=== PATIENT | male | born 1940 | race Caucasian/White ===

== ENCOUNTER → 2016-12-11 | Outpatient (CLI) | payer OTHER ==
[~2016-12-11] VITALS: Ht 175.3 cm; Wt 81.2 kg
[~2016-12-11] MED LIST: AMMONIUM LACTA225 GM TP; ASPIR 8181 MG PO; ASPIRIN EC81 M1 PO; CRESTOR10 MG; DUREZOL5 ML OP; FLOMAX0.4 MG PO; GABAPENTIN 100100 MG PO; GLUCOPHAGE1000 MG; HYDROCODON-ACE1 EAC8 PO; HYDROCODONE-APA1 TA1 PO; METFORMIN HCL500 MG PO; MOVANTIK25 MG PO; NEURONTIN 300300 M1 PO; NORCO 10-325 T1 EACH PO; NORCO 5-325 TA1 EACH PO; NORCO 7.5-3251 EACH PO; NYSTATIN 1100000 U/M PO; PIOGLITAZONE15 MG PO; PROCTOSOL-HC28.35 GM RC; PROTONIX40 M1 PO; TAMSULOSIN HCL0.4 MG PO; TEGRETOL XR100 MG PO; TRAMADOL 50 MG50 MG PO; TRILEPTAL150 MG PO; UNICOMPLEX M TA1 TA1 PO; URECHOLINE 10 M10 M1 PO; VIGAMOX3 M1 OP; ZOFRAN ODT4 MG PO
--- NOTE | ~2016-12-11 | HPC ---
[facility] [address] [place] [address] PAIN MANAGEMENT CONSULTATION Name: FANNIE GODOY [id number] Admission: 12/11/16 Attend Phys: Sergey Lopez DO Discharge: Date of : 39 Report #: [id number] THIS REPORT FOR: //name// CC: Chelsea Lopez HISTORY OF PRESENT ILLNESS: The patient is a very pleasant 76-year-old gentleman being treated for neuropathic pain. He is status post traumatic compression fracture L1 with T12-L3 fusion. Last seen in pain clinic on 08/03/2016, we did a left L4-L5 transforaminal epidural injection for ongoing radicular pain. He had perirectal pain with burning neuropathic component, this has been treated with gabapentin 300 mg t.i.d. with some efficacy. He returns to pain clinic today noting that the injection afforded 50-60% relief for 3-4 months, pain is beginning to recur, left lateral leg to great toe. Intermittent tailbone or perirectal dysesthesia. Rates his pain of 4 on a 0-10 visual analog scale; associated with numbness, aching, intermittent burning; exacerbated being up and after activity. PHYSICAL EXAMINATION: Shows 76-year-old gentleman, BMI is 26.4 kilograms per meter squared. Vital signs are stable as noted in the EMR. Alert and oriented to person, place and time, judged to be a reasonable historian. Rises from chair using armrest, modestly antalgic gait, positive straight leg raise on the left with L4 distribution pain. Diffuse tenderness across the low back. No discrete trigger points noted. We reviewed the fact that opiate medications are being used to provide analgesia adequate to support activities of daily living, not attempting to achieve a specific pain score on the 0-10 Visual Analog Scale. The current opiate medications are providing sufficient analgesia to allow the patient to participate in activities of daily living. The patient is not exhibiting any aberrant behavior suggestive of drug diversion. The patient is not having any adverse reactions to medications. The patient is not suffering from daytime somnolence or mental acuity changes. The patient is managing opiate-induced constipation with appropriate yggv-sbe-colrszu agents and dietary considerations. The patient was counseled on concern for caution with operating a motor vehicle while using opiate medications. A physical exam was performed and the patient's functional status was evaluated. All patients with back pain were advised against the bed rest greater than 4 days and were advised to return to normal activities. Pain score assessment was noted and the treatment plan was reviewed with the patient. All current medications, both prescribed and OTC were reviewed and reconciled on the electronic medical record. Tobacco screening was accomplished and smoking cessation was advised when indicated. BMI was noted and diet/exercise modification was recommended for all patients following outside normal parameters. [address] [address] PAIN MANAGEMENT CONSULTATION Name: WALTFANNIE J [facility] #: [facility] [id number] Admission: 12/11/16 Attend Phys: Sergey Lopez DO Discharge: Date of : 39 Report #: [id number] I reviewed with the patient today their responsibilities to safeguard prescription medications, reviewed their responsibility to utilize medications only as prescribed by the physician. They are to seek and receive pain medications only from 1 physician group ( [facility]). They are to use 1 pharmacy and keep the clinic informed if they change pharmacies. Their responsibilities include making followup visits in a timely fashion and to avoid abrupt discontinuation of medication usage. Their responsibilities further include bringing their medications (bottles from the pharmacy with residual pills) to the visit for possible confirmation of pill counts and the patient understands it is their responsibility to submit to random drug screens to ensure both that the medications prescribed are present, and that no other controlled substances are present. All prescriptions provided today were generated electronically. The patient continues to take hydrocodone 7.5/325 one tablet 2-4 times a day, 240 tablets typically lasts 90 days plus. Uses gabapentin 300 mg 1 in the morning, 1 at noon, and 2 at night; Trileptal 1 in the morning, 2 at night. No problems with daytime somnolence, mental acuity changes, constipation. ASSESSMENT: Symptomatic lumbar radiculopathy status post decompressive laminectomy and fusion T10-L3 with an L4 left radicular pain pattern, neuropathic pain stable on baseline medications. RECOMMENDATION: Renew hydrocodone 7.5/325 100 tablets with a second prescription to be released in 6 weeks, typically these 2 prescriptions should last about 3 months. We will renew gabapentin 300 mg 1 in the morning, 1 at noon and 2 at night, 360 tablets and oxcarbazepine 1 in the morning, 2 at night, 270 tablets. months prescriptions will need to be renewed quarterly. We will seek authorization for repeat left L4-L5 transforaminal epidural injection at next visit. By: [id number] Sergey Lopez DO /nt
[2016-12-11 10:39] VITALS: BP 138/84
== END | disposition home or self-care (01) ==
LOC: PAIN 06:52
DX: M54.16 Radiculopathy, lumbar region (principal); I10 Essential (primary) hypertension; F11.20 Opioid dependence, uncomplicated; Z98.890 Other specified postprocedural states; Z79.82 Long term (current) use of aspirin; Z79.899 Other long term (current) drug therapy

== ENCOUNTER → 2016-12-18 | Outpatient (CLI) | payer OTHER ==
[~2016-12-18] VITALS: Ht 175.3 cm; Wt 80.6 kg
--- NOTE | ~2016-12-18 | HPC ---
[address] [address] PAIN MANAGEMENT CONSULTATION Name: FANNIE GODOY Room #: REG [facility] Zacarias#: [id number] Admission: 12/18/16 Attend Phys: Sergey Lopez DO Discharge: Date of : 39 Report #: [id number] THIS REPORT FOR: //name// CC: Chelsea Lopez DATE OF SERVICE: 12/18/2016 The patient is a very pleasant 76-year-old gentleman well known to the pain clinic, typically treated for lumbar radiculopathy, status post traumatic compression fracture L1 with a T12 to L3 fusion. He was seen in the pain clinic 12/11/2016 with acute exacerbation of left L4 radicular pain. I had prior proceeded with a left L4-L5 transforaminal epidural injection 08/03/2016, this gave him greater than 60% relief for 3-4 months. We sought authorization for repeat injection at last visit. This was accomplished. He presents to pain clinic today for this procedure. PROCEDURE: Transforaminal lumbar epidural injection under fluoroscopy. PROCEDURE NOTE: After both written and informed consent was obtained including risk of spinal cord damage, infection, increased pain and paralysis, the patient agreed to proceed. The patient was taken to the fluoroscopy suite, placed in a prone position with appropriate abdominal bolstering. After sterile prep with ChloraPrep and sterile drape, a skin wheal with 1% Xylocaine was raised. A 22 gauge 4-1/2 inch epidural Tuohy needle was inserted. From an oblique approach into the posterior-superior aspect of the left L4-L5 neural foramen with continuous pressure on the glass syringe plunger for loss of resistance. Glass syringe was filled with 2 cc of 0.1 Xylocaine. The glass loss of resistance syringe was removed. A low volume extension tubing was connected, negative aspiration was accomplished for cerebrospinal fluid or blood. 1 mL of Omnipaque was injected which showed spread both within the epidural space and laterally along the nerve root. This was followed with 80 mg of triamcinolone plus 1 mL of 1.5% preservative-free Xylocaine. Needle was partially withdrawn, 0.5 mL of Xylocaine was injected to clear the needle and the needle was removed. The area was cleansed, band-aid was applied. The patient was allowed to ambulate to the recovery room, discharged in good and stable condition. ASSESSMENT: Symptomatic lumbar radiculopathy status post decompressive laminectomy. <ELECTRONICALLY SIGNED> By: Sergey Lopez DO 12/22/16 1606 1537 00 Sergey Lopez DO /nt
[2016-12-18 10:57] VITALS: BP 134/81
== END | disposition home or self-care (01) ==
LOC: PAIN 06:53
DX: M54.16 Radiculopathy, lumbar region (principal); Z87.81 Personal history of (healed) traumatic fracture

== ENCOUNTER → 2017-03-22 | Outpatient (CLI) | payer OTHER ==
[~2017-03-22] VITALS: Ht 175.3 cm; Wt 80.3 kg
--- NOTE | ~2017-03-22 | HPC ---
[facility] [address] [place] [address] PAIN MANAGEMENT CONSULTATION Name: WALTFANNIE Randee Room #: REG [facility] Zacarias#: [id number] Admission: 03/22/17 Attend Phys: Sergey Lopez DO Discharge: Date of : 39 Report #: [id number] THIS REPORT FOR: //name// CC: Chelsea Lopez The patient is a very pleasant 77-year-old gentleman, well known to pain clinic, typically treated for axial back pain, lumbar radiculopathy, status post L1 vertebral compression fracture (traumatic) with subsequent T12-L3 fusion. Requires high risk complex medication management. Last seen in the pain clinic on 12/18/2016, did a left L4-L5 transforaminal epidural injection with over 50% improvement of pain for 8-12 weeks. Prior, he had a left L4-L5 transforaminal epidural injection back in July. He returns to pain clinic today, we had a prolonged visit from 10:20-10:45, greater than 50% of the 25+ minute visit was spent counseling the patient. He notes medications are helpful, rates his pain anywhere from a 4-8 on a VAS. Again, good transient relief greater than 2 months following the transforaminal epidural injection. Continues to take hydrocodone 7.5/325 up to 4 a day, Trileptal 150 mg 1 in the morning, 2 at night, gabapentin 300 mg 1 in the morning and 2 at night. The patient fell 3 weeks ago, he tripped over a garden hose, was seen as a trauma patient in the ER, I believe at [facility]. He did have some fractured ribs. This was 3 weeks ago. Today, he notes pain somewhat in the left chest wall, but chronic pain in the left L4 distribution, down that leg. Pain is exacerbated with standing, walking and bending. PHYSICAL EXAMINATION: GENERAL: Shows 77-year-old gentleman. VITAL SIGNS: BMI is 26.1 kilograms per meter squared. Blood pressure is nominally elevated at 144/94, pulse 75, respirations 16. CHEST: Again, deep excursion respiration exacerbates left chest wall pain. MUSCULOSKELETAL: Rises from chair using armrest, modestly antalgic gait, positive straight leg raise on the left. We reviewed the fact that opiate medications are being used to provide analgesia adequate to support activities of daily living, not attempting to achieve a specific pain score on the 0-10 Visual Analog Scale. The current opiate medications are providing sufficient analgesia to allow the patient to participate in activities of daily living. The patient is not exhibiting any aberrant behavior suggestive of drug diversion. The patient is not having any adverse reactions to medications. The patient is not suffering from daytime somnolence or mental acuity changes. The patient is managing opiate-induced [address] [address] PAIN MANAGEMENT CONSULTATION Name: FANNIE GODOY Room #: REG [facility] Adames#: [id number] Admission: 03/22/17 Attend Phys: Sergey Lopez DO Discharge: Date of : 39 Report #: [id number] constipation with appropriate isoe-uuk-fmmtoip agents and dietary considerations. The patient was counseled on concern for caution with operating a motor vehicle while using opiate medications. A physical exam was performed and the patient's functional status was evaluated. All patients with back pain were advised against the bed rest greater than 4 days and were advised to return to normal activities. Pain score assessment was noted and the treatment plan was reviewed with the patient. All current medications, both prescribed and OTC were reviewed and reconciled on the electronic medical record. Tobacco screening was accomplished and smoking cessation was advised when indicated. BMI was noted and diet/exercise modification was recommended for all patients following outside normal parameters. I reviewed with the patient today their responsibilities to safeguard prescription medications, reviewed their responsibility to utilize medications only as prescribed by the physician. They are to seek and receive pain medications only from 1 physician group ( [facility]). They are to use 1 pharmacy and keep the clinic informed if they change pharmacies. Their responsibilities include making followup visits in a timely fashion and to avoid abrupt discontinuation of medication usage. Their responsibilities further include bringing their medications (bottles from the pharmacy with residual pills) to the visit for possible confirmation of pill counts and the patient understands it is their responsibility to submit to random drug screens to ensure both that the medications prescribed are present, and that no other controlled substances are present. All prescriptions provided today were generated electronically. ASSESSMENT: Left lumbar radiculopathy status post T12-L3 fusion after L1 compression fracture. Recent left chest wall pain secondary to rib fractures (trip and fall), lumbar radiculopathy, chronic pain syndrome requiring high-risk complex medication management. RECOMMENDATION: We will renew hydrocodone 10/325 up to 4 a day, taken the liberty of writing for 3 months of current medication. Continue gabapentin and oxcarbazepine unchanged. We will seek authorization for repeat left L4-L5 transforaminal epidural injection. The patient and his were packing their home, downsizing and moving over the next several weeks. We will likely proceed with epidural injection (left L4-L5 transforaminal) in the next 2-3 weeks, we will seek authorization for same. Discharged in good stable condition after prolonged visit, greater than 25 minutes was spent with the patient today, 50% of time spent counseling the patient regarding therapeutic options. <ELECTRONICALLY SIGNED> By: Sergey Lopez DO 03/23/17 1036 1221 0848 Sergey Lopez DO /nt
[2017-03-22 10:18] VITALS: BP 144/94
== END | disposition home or self-care (01) ==
LOC: PAIN 06:29
DX: M54.16 Radiculopathy, lumbar region (principal); S22.089G Unspecified fracture of T11-T12 vertebra, subsequent encounter for fracture with delayed healing; X58.XXXD Exposure to other specified factors, subsequent encounter; G89.4 Chronic pain syndrome

== ENCOUNTER → 2017-03-23 | Outpatient (CLI) | payer OTHER | LOC: RAD 08:45 | DX: S22.42XA Multiple fractures of ribs, left side, initial encounter for closed fracture (principal); X58.XXXA Exposure to other specified factors, initial encounter; Y93.89 Activity, other specified; Y92.89 Other specified places as the place of occurrence of the external cause; Y99.8 Other external cause status ==

== ENCOUNTER → 2017-04-09 | Outpatient (CLI) | payer OTHER ==
[~2017-04-09] VITALS: Ht 175.3 cm; Wt 84.5 kg
--- NOTE | ~2017-04-09 | HPC ---
[facility] [place] [address] PAIN MANAGEMENT CONSULTATION Name: WALTFANNIE Room #: REG [facility] Zacarias#: [id number] Admission: 04/09/17 Attend Phys: Sergey Lopez DO Discharge: Date of : 39 Report #: [id number] THIS REPORT FOR: //name// CC: Chelsea Lopez DATE OF SERVICE: 04/09/2017 PROCEDURE: Left L4-L5 transforaminal epidural injection under fluoroscopy. INDICATION: Symptomatic lumbar radiculopathy status post extensive decompressive laminectomy and fusion (T12-L3) for a traumatic burst fracture of L1. Axial back pain, lumbar radiculopathy. He did very well with the prior left L4-L5 transforaminal epidural injection on 12/18/2016. He continued on baseline medication including hydrocodone 10/325 four a day, gabapentin and Trileptal. We sought at last visit 03/22/2017 authorization for today's injection. ASSESSMENT: Symptomatic lumbar radiculopathy, status post prior decompressive laminectomy and fusion. PROCEDURE: Left L4-L5 transforaminal epidural injection under fluoroscopy. PROCEDURE NOTE: After both written and informed consent was obtained including risk of spinal cord damage, infection, increased pain and paralysis, the patient agreed to proceed. The patient was taken to the fluoroscopy suite, placed in a prone position with appropriate abdominal bolstering. After sterile prep with ChloraPrep and sterile drape, a skin wheal with 1% Xylocaine was raised. A 22 gauge 4-1/2 inch epidural Tuohy needle was inserted. From an oblique approach into the posterior-superior aspect of the left L4-L5 neural foramen with continuous pressure on the glass syringe plunger for loss of resistance. Glass syringe was filled with 2 cc of 0.1 Xylocaine. The glass loss of resistance syringe was removed. A low volume extension tubing was connected, negative aspiration was accomplished for cerebrospinal fluid or blood. 1 mL of Omnipaque was injected which showed spread both within the epidural space and laterally along the nerve root. This was followed with 80 mg of triamcinolone plus 1 mL of 1.5% preservative-free Xylocaine. Needle was partially withdrawn, 0.5 mL of Xylocaine was injected to clear the needle and the needle was removed. The area was cleansed, band-aid was applied. The patient was allowed to ambulate to the recovery room, discharged in good and stable condition. <ELECTRONICALLY SIGNED> By: Sergey Lopez DO 04/11/17 0802 1548 2033 Sergey Lopez DO /nt
[2017-04-09 12:37] VITALS: BP 140/73
== END | disposition home or self-care (01) ==
LOC: PAIN 07:23
DX: M54.16 Radiculopathy, lumbar region (principal); Z98.890 Other specified postprocedural states; Z87.81 Personal history of (healed) traumatic fracture; Z87.442 Personal history of urinary calculi; Z79.82 Long term (current) use of aspirin; Z79.899 Other long term (current) drug therapy

== ENCOUNTER → 2017-07-16 | Outpatient (CLI) | payer OTHER ==
[~2017-07-16] VITALS: Ht 175.3 cm; Wt 80.2 kg
[~2017-07-16] MED LIST changes: +CYMBALTA30 MG PO
--- NOTE | ~2017-07-16 | HPC ---
[facility] [place] [address] PAIN MANAGEMENT CONSULTATION Name: FANNIE GODOY Room #: REG [facility] Zacarias#: [id number] Admission: 07/16/17 Attend Phys: Sergey Lopez DO Discharge: Date of : 39 Report #: [id number] THIS REPORT FOR: //name// CC: Chelsea Lopez HISTORY OF PRESENT ILLNESS: The patient is a very pleasant 77-year-old gentleman typically treated for chronic axial back pain. He is status post L1 traumatic vertebral compression fracture with subsequent T12-L3 fusion. He has been treated for chronic back pain, component of lumbar radiculopathy. We did an epidural injection left L4-L5 transforaminal on 04/09/2017. We have continued the patient on hydrocodone 10/325 four a day, gabapentin 300 mg 4 tablets a day and oxcarbazepine 150 mg t.i.d. The patient returns to pain clinic today noting pain continues to be about 5 on a VAS. We had a prolonged visit today, from approximately 9:50-10:20, greater than 50% of this 25+ minute visit was spent counseling the patient. The patient notes while medications provide sufficient analgesia to participate in activities of daily living, he notes pain does continue to be problematic. He has paresthesia in the lower extremities with a component of axial back pain. We reviewed the fact that opiate medications are being used to provide analgesia adequate to support activities of daily living, not attempting to achieve a specific pain score on the 0-10 Visual Analog Scale. The current opiate medications are providing sufficient analgesia to allow the patient to participate in activities of daily living. The patient is not exhibiting any aberrant behavior suggestive of drug diversion. The patient is not having any adverse reactions to medications. The patient is not suffering from daytime somnolence or mental acuity changes. The patient is managing opiate-induced constipation with appropriate seuk-jdj-zcorsug agents and dietary considerations. The patient was counseled on concern for caution with operating a motor vehicle while using opiate medications. A physical exam was performed and the patient's functional status was evaluated. All patients with back pain were advised against the bed rest greater than 4 days and were advised to return to normal activities. Pain score assessment was noted and the treatment plan was reviewed with the patient. All current medications, both prescribed and OTC were reviewed and reconciled on the electronic medical record. Tobacco screening was accomplished and smoking cessation was advised when indicated. BMI was noted and diet/exercise modification was recommended for all patients following outside normal parameters. I reviewed with the patient today [place] [address] PAIN MANAGEMENT CONSULTATION Name: WALTFANNIE MCCRACKEN Room #: REG [place] Adames#: [id number] Admission: 07/16/17 Attend Phys: Sergey Lopez DO Discharge: Date of : 39 Report #: [id number] prescription medications, reviewed their responsibility to utilize medications only as prescribed by the physician. They are to seek and receive pain medications only from 1 physician group ( [facility]). They are to use 1 pharmacy and keep the clinic informed if they change pharmacies. Their responsibilities include making followup visits in a timely fashion and to avoid abrupt discontinuation of medication usage. Their responsibilities further include bringing their medications (bottles from the pharmacy with residual pills) to the visit for possible confirmation of pill counts and the patient understands it is their responsibility to submit to random drug screens to ensure both that the medications prescribed are present, and that no other controlled substances are present. All prescriptions provided today were generated electronically. PHYSICAL EXAMINATION: Shows 77-year-old gentleman, BMI is 26.1 kilograms per meter squared. Blood pressure is 149/83, pulse 76, respirations 16. He does not have a history of osteoarthritis. Again, BMI is 26.1 kilograms per meter squared. He has not fallen in the past 3 months. He had fallen prior to our last visit and had broken ribs that has resolved. He rises from chair using armrest. Gait is tandem. Has some diffuse low back tenderness. Lumbar flexion is modestly limited. Lower extremity strength is preserved. Paresthesia in bilateral lower extremities, left greater than right. ASSESSMENT: Chronic axial back pain, lumbar radiculopathy by history, status post traumatic L1 vertebral compression fracture with subsequent T12-L3 fusion. RECOMMENDATIONS: I had a long discussion with the patient today. We did discuss spinal cord stimulator as possible therapeutic option. I talked about trying to wean off of opiate analgesics as able. I talked about technical concerns for spinal cord stimulator trial, typical entry point is at T12-L1, this is right at the side of his fusion, we would have to enter at T11-T12. We would want to get our contacts over T9, T10 or T11. I do think this is possible, but I told him if we trialled, I would have a "low threshold for aborting" if I was concerned about difficulty with spinal cord stimulator lead trial placement. The patient's general service officer physician, Dr. Hassan, has taken over writing for his gabapentin and carbamazepine. This is appropriate. I would suggest that they continue to watch serum chemistries, Oxcarbazepine can be associated with hyponatremia and leukopenia as well as pancytopenia and thrombocytopenia. Again, the patient has been stable on his medication for quite some time. I doubt that this will become an issue, but again it certainly warrants monitoring. Today, we have elected to continue hydrocodone 10/325, limit 100 tablets for 30 days, he typically takes 1 tablet 3 or 4 times a day. [address] [address] PAIN MANAGEMENT CONSULTATION Name: WALTFANNIE MCCRACKEN [facility] [id number] Admission: 07/16/17 Attend Phys: Sergey Lopez DO Discharge: Date of : 39 Report #: [id number] We did discuss other therapeutic modalities as well. Ultimately, we decided to trial Cymbalta 30 mg low dose. We talked about risks, benefits of this agent as well. Suggest he try at least 30 days of Cymbalta. If this does not afford adequate relief, simply discontinue. If it does get some incremental relief, I have taken the liberty of writing with multiple renewals on this prescription. I also gave the patient both print and video literature regarding high frequency spinal cord stimulator (Nevro) type device. We will continue conversation about spinal cord stimulator and the patient's chronic pain at next visit. Discharged in good and stable condition after prolonged visit, 30 minutes spent counseling the patient. A buccal drug swab was accomplished today. No aberrant behavior suggestive for drug diversion, simply complying with our opiate consent to treat contract. <ELECTRONICALLY SIGNED> By: Sergey Lopez DO 07/18/17 0807 1109 1145 Seregy Lopez DO /bernice
[2017-07-16 09:55] VITALS: BP 149/83
== END ==
LOC: PAIN 07:04
DX: M54.5 Low back pain (principal); M54.16 Radiculopathy, lumbar region; Z87.81 Personal history of (healed) traumatic fracture

== ENCOUNTER → 2017-09-03 | Outpatient (CLI) | payer OTHER ==
[~2017-09-03] VITALS: Ht 175.3 cm; Wt 81.1 kg
--- NOTE | ~2017-09-03 | HPC ---
[facility] [place] [address] PAIN MANAGEMENT CONSULTATION Name: FANNIE GODOY Room #: REG [facility] Naldo.#: [id number] Admission: 09/03/17 Attend Phys: Sergey Lopez DO Discharge: Date of : 39 Report #: [id number] THIS REPORT FOR: //name// CC: Chelsea Lopez DATE OF SERVICE: 09/03/2017 The patient is a very pleasant 77-year-old gentleman long known to the pain clinic, typically treated for axial back pain status post L1 traumatic vertebral compression fracture, status post T12-L3 fusion. He has been having ongoing pain in the left L4 radicular pain pattern. Started the patient on oxcarbazepine 150 mg. He is taking this 1 in the morning, 2 at night, gabapentin 300 mg 1 in the morning, 1 in the afternoon and 2 at night. He has 90-day prescriptions with multiple refills of both of these. He takes hydrocodone p.r.n. 7.5 mg tablets 1 tablet anywhere from 2-4 times a day. Does not require renewal of this prescription. We trialed Cymbalta 30 mg, he took it for 1 week and had some cognitive issues feeling dysphoric. He thinks it may have made his pain worse (?). Random drug screen 07/16/2017, in the last visit was positive for prescribed medications as expected. The patient returns to pain clinic today. We talked about therapeutic issues going forward. We briefly touched on spinal cord stimulator as a therapeutic option on last visit. The patient notes prior left L4-L5 transforaminal epidural injection that helped with the left L4 radicular pain pattern. He thinks oxcarbazepine and gabapentin are helping the neuropathic pain component. PHYSICAL EXAMINATION: Shows 77-year-old gentleman, BMI is 26.4 kilograms per meter squared. Vital signs are stable as noted in the EMR. Does not use tobacco products. Rises from chair using armrest. Gait is tandem. He fell 3 weeks ago, he had some broken ribs. Subsequent to this, he is following up with Dr. Allan. He generally feels his balance is good. He merely tripped. He does think that the Cymbalta again made him feel a little bit dizzy, but this is unrelated to the trip 3 weeks ago. Physical exam further shows a modestly antalgic gait, positive straight leg raise on the left, pain in the L4 radicular pattern, diminished patellar reflex on this side. Lower extremity strength is diminished, but symmetric about 3-4/5 to all muscle groups tested. ASSESSMENT: Symptomatic neuropathic pain, axial back pain status post L1 vertebral compression fracture requiring complex medication management. RECOMMENDATIONS: Continue oxcarbazepine, gabapentin unchanged. We will hold [address] [address] PAIN MANAGEMENT CONSULTATION Name: FANNIE GODOY Room #: REG [facility] Zacarias#: [id number] Admission: 09/03/17 Attend Phys: Sergey Lopez DO Discharge: Date of : 39 Report #: [id number] off on the Cymbalta due to cognitive impairment. RECOMMENDATION: Continue p.r.n. hydrocodone. With acute exacerbation of left L4 radicular pain pattern, we will repeat a left L4-L5 transforaminal epidural injection today. PROCEDURE: Transforaminal epidural injection under fluoroscopy. PROCEDURE NOTE: After both written and informed consent was obtained including risk of spinal cord damage, infection, increased pain and paralysis, the patient agreed to proceed. The patient was taken to the fluoroscopy suite, placed in a prone position with appropriate abdominal bolstering. After sterile prep with ChloraPrep and sterile drape, a skin wheal with 1% Xylocaine was raised. A 22 gauge 4-1/2 inch epidural Tuohy needle was inserted. From an oblique approach into the posterior-superior aspect of the left L4-L5 neural foramen with continuous pressure on the glass syringe plunger for loss of resistance. Glass syringe was filled with 2 cc of 0.1 Xylocaine. The glass loss of resistance syringe was removed. A low volume extension tubing was connected, negative aspiration was accomplished for cerebrospinal fluid or blood. 1 mL of Omnipaque was injected which showed spread both within the epidural space and laterally along the nerve root. This was followed with 80 mg of triamcinolone plus 1 mL of 1.5% preservative-free Xylocaine. Needle was partially withdrawn, 0.5 mL of Xylocaine was injected to clear the needle and the needle was removed. The area was cleansed, Band-Aid was applied. The patient was allowed to ambulate to the recovery room, discharged in good and stable condition. <ELECTRONICALLY SIGNED> By: Sergey Lopez DO 09/06/17 [id number] [id number] Sergey Lopez DO /nt
[2017-09-03 10:26] VITALS: BP 150/83
== END | disposition home or self-care (01) ==
LOC: PAIN 06:07
DX: M54.16 Radiculopathy, lumbar region (principal); G89.29 Other chronic pain; Z79.891 Long term (current) use of opiate analgesic; Z98.890 Other specified postprocedural states; Z79.899 Other long term (current) drug therapy; Z79.82 Long term (current) use of aspirin

== ENCOUNTER → 2017-10-12 | Outpatient (CLI) | payer OTHER ==
[~2017-10-12] VITALS: Ht 175.3 cm; Wt 84.0 kg
--- NOTE | ~2017-10-12 | HPC ---
[facility] [place] [address] PAIN MANAGEMENT CONSULTATION Name: FANNIE GODOY [id number] Admission: 10/12/17 Attend Phys: Sergey Lopez DO Discharge: Date of : 39 Report #: [id number] THIS REPORT FOR: //name// CC: Chelsea Lopez HISTORY OF PRESENT ILLNESS: The patient is a very pleasant 77-year-old gentleman who suffered a traumatic injury, he fell off a ladder, had a spontaneous burst fracture of L1. He now has a T12-L3 fusion. He has been managed for axial back and lumbar radicular pain. Last seen in the pain clinic on 09/03/2017. He was continued on baseline narcotic including hydrocodone 7.5/325 one tablet 3-4 times a day, limit 100 tablets for 30 days. Cymbalta was trialled. The Cymbalta caused some cognitive issues and dysphoria, we discontinued that medication. Random drug screen on 07/16/2017 was positive for prescribed medications. The patient returns to pain clinic today noting medications generally are sufficient to help mitigate pain. He does use Trileptal 150 mg 1 in the morning, 2 at night, prescribed by Dr. Hassan along with gabapentin 300 mg 1 in the morning and 2 at night, again prescribed by Dr. Hassan. He has been taking hydrocodone 7.5/325. He had fallen prior to her last visit and had some broken ribs. He follows up with Dr. Allan regarding that. He has not fallen in the interval since we last saw him. Functional assessment tool, however, score is fairly high 60/70. Notes pain to 7 on a VAS primarily in the low back, left leg with paresthesia going down the leg. He notes that medications while helpful he does have end of dose failure. He would like to take hydrocodone 4 times a day rather than "3 or 4." Even at 4 tablets a day, that is 30 mg of morphine equivalent, I tend to believe that the patient uses this medicine quite responsibly. He does not drink to excess. He has never used any recreational drugs. He does not use tobacco products. Medications do enable him to participate in activities of daily living. He did unfortunately have to downsize his home due to the fact that he has been unable to participate in his avocation of gardening. They now live in a smaller "patio home." He and his do remain social and active. He, however, cannot mow, dig and plant in the garden like he did before the injury. PHYSICAL EXAMINATION: Staff notes a pleasant 77-year-old gentleman, BMI is 27.3 kilograms per meter squared. Blood pressure 141/76, pulse 60, respirations 14. Rises from chair using armrest. Gait is modestly antalgic. Does have a little weakness in the left leg, paresthesia down the leg as well. Lumbar flexion is limited, compatible with his fairly large fusion. He is alert and oriented to person, place and time, judged to be a reasonable historian. We reviewed the fact that opiate medications are being used to provide analgesia adequate to support activities of daily living, not attempting to achieve a specific pain score on the 0-10 Visual Analog Scale. The current opiate [facility] [address] [place] [address] PAIN MANAGEMENT CONSULTATION Name: FANNIE GODOY Room #: REG [facility] Aadmes#: [id number] Admission: 10/12/17 Attend Phys: Yanairon FayeRadha Lopez DO Discharge: Date of : 39 Report #: [id number] medications are providing sufficient analgesia to allow the patient to participate in activities of daily living. The patient is not exhibiting any aberrant behavior suggestive of drug diversion. The patient is not having any adverse reactions to medications. The patient is not suffering from daytime somnolence or mental acuity changes. The patient is managing opiate-induced constipation with appropriate acny-efs-zsfruxf agents and dietary considerations. The patient was counseled on concern for caution with operating a motor vehicle while using opiate medications. A physical exam was performed and the patient's functional status was evaluated. All patients with back pain were advised against the bed rest greater than 4 days and were advised to return to normal activities. Pain score assessment was noted and the treatment plan was reviewed with the patient. All current medications, both prescribed and OTC were reviewed and reconciled on the electronic medical record. Tobacco screening was accomplished and smoking cessation was advised when indicated. BMI was noted and diet/exercise modification was recommended for all patients following outside normal parameters. I reviewed with the patient today their responsibilities to safeguard prescription medications, reviewed their responsibility to utilize medications only as prescribed by the physician. They are to seek and receive pain medications only from 1 physician group ( [facility]). They are to use 1 pharmacy and keep the clinic informed if they change pharmacies. Their responsibilities include making followup visits in a timely fashion and to avoid abrupt discontinuation of medication usage. Their responsibilities further include bringing their medications (bottles from the pharmacy with residual pills) to the visit for possible confirmation of pill counts and the patient understands it is their responsibility to submit to random drug screens to ensure both that the medications prescribed are present, and that no other controlled substances are present. All prescriptions provided today were generated electronically. ASSESSMENT: Symptomatic lumbar radiculopathy status post decompressive laminectomies following a L1 burst fracture and subsequent fusion. RECOMMENDATION: We will increase hydrocodone to 7.5/325 four a day, I have taken the liberty of writing for a multi-month prescription, follow up at that time, earlier if needed. <ELECTRONICALLY SIGNED> By: Sergey Lopez DO 10/15/17 0943 [id number] Sergey Lopez DO /nt
[2017-10-12 09:46] VITALS: BP 141/76
== END ==
LOC: PAIN 07:07
DX: M54.16 Radiculopathy, lumbar region (principal); M96.1 Postlaminectomy syndrome, not elsewhere classified